=== PATIENT | female | born 1985 | race Two or more races ===

== ENCOUNTER 2024-06-06 11:26 | Emergency (ER) | payer SELFPAY ==
[2024-06-06] MEDS ORDERED: Sodium Chloride 0.9% 2.5 ML Syringe FLUSH PRN (12:11)
[2024-06-06] MEDS ORDERED: Sodium Chloride 0.9% 10 ML Syringe FLUSH PRN (12:11)
[2024-06-06] MEDS: Methocarbamol 750 MG Tab PO STA (12:38)
[2024-06-06 12:48] LABS: BASOPHILS ABSOLUTE AUTO 0.02 K/uL (0.00-0.20); BASOPHILS PERCENT AUTO 0.4 % (0.0-1.0); EOSINOPHILS ABSOLUTE AUTO 0.06 K/uL (0.00-0.45); EOSINOPHILS PERCENT AUTO 1.2 % (0.0-6.0); HEMATOCRIT 44.5 % (37.0-47.0); LYMPHOCYTES ABSOLUTE AUTO 1.81 K/uL (1.00-4.80); LYMPHOCYTES PERCENT AUTO 35.8 % (24.0-44.0); MEAN CORPUSCULAR HEMOGLOBIN 28.8 pg (28.0-32.0); MEAN CORPUSCULAR HGB CONC 33.7 g/dL (32.0-36.0); MEAN CORPUSCULAR VOLUME 85.4 fL (83.0-99.0); MEAN PLATELET VOLUME 10.3 fL (9.4-12.3); MONOCYTES ABSOLUTE AUTO 0.33 K/uL (0.00-0.80); MONOCYTES PERCENT AUTO 6.5 % (0.0-8.0); NEUTROPHILS ABSOLUTE AUTO 2.84 K/uL (1.80-7.70); NEUTROPHILS PERCENT AUTO 56.1 % (41.0-71.0); PLATELET COUNT,PLT 271 K/uL (150-400); RED BLOOD CELL COUNT 5.21 M/uL (4.10-5.30); WHITE BLOOD CELL COUNT,WBC 5.06 K/uL (3.9-11.3)
[2024-06-06] MEDS: Ketorolac 30 MG/ML SDV ONE (12:52)
[2024-06-06] MEDS: Ondansetron 4 MG Tab.DIS PO STA (12:53)
[2024-06-06] MEDS: Ketorolac 10 MG Tab PO STA (12:54)
[2024-06-06] MEDS: Ketorolac 30 MG/ML SDV IVPUSH STA (12:55)
[2024-06-06] MEDS: Ondansetron 4 MG/2 ML SDV IVPUSH STA (12:56)
[2024-06-06] MEDS: Sodium Chloride 0.9% 1,000 ML IV STA (13:05)
[2024-06-06 13:19] LABS: ALBUMIN 4.3 g/dL (3.4-5.0); BILIRUBIN TOTAL 0.7 mg/dL (0.2-1.0); CALCIUM 9.9 mg/dL (8.5-10.1); CARBON DIOXIDE,CO2 23.1 mmol/L (21.0-32.0); CREATININE 0.8 mg/dL (0.6-1.0); EST CRCL DRUG DOSING (CG) 93.63 mL/min; MAGNESIUM 2.2 mg/dL (1.8-2.4); POTASSIUM,K 4.2 mmol/L (3.5-5.1); PROTEIN TOTAL,TP 8.6 g/dL (6.4-8.2)
== END 2024-06-06 14:30 | disposition home or self-care (01) ==
LOC: MW.ED 11:26
DX: F11.23 Opioid dependence with withdrawal (principal); F17.210 Nicotine dependence, cigarettes, uncomplicated; Z79.899 Other long term (current) drug therapy; Z75.8 Other problems related to medical facilities and other health care
CPT/HCPCS: 36415; 80053; 83735; 84703; 85025; 99284; A9270; 99283